=== PATIENT | female | born 2005 | race Caucasian/White ===

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

== ENCOUNTER 2024-10-11 18:45 | Emergency (ER) | payer BC, SELFPAY ==
[2024-10-11 18:47] VITALS: BP 126/83
[2024-10-11 20:24] VITALS: BP 141/80
--- NOTE | 2024-10-11 22:37 | ED.GENMED ---
History of Present Illness
General
Chief Complaint: Head Injury
Source: patient
Exam Limitations: none
Time Seen by Provider: 10/11/24 19:38
Nursing documentation reviewed up to this point in time: agreed with
History of Present Illness
History of Present Illness:
seee MDM
Past History
Past History
ED Past Medical History: Other (Ovarian cysts, sports induced asthma, PCOS, frequent ear infections)
Review of Systems
Review of Systems
Allergies reviewed?: Yes
All Other Systems: Not applicable
Phy Exam
Physical Exam
Physical Exam:
GENERAL: Alert , in no apparent distress
HEAD: NCAT nontender
NECK: no midline tenderness, active ROM intact, no paraspinal muscle tenderness;
EYE: pupils equal and reactive, EOMs intact.
ENT: o/p clr, mmm. no hemotympanum
CARDIAC: Regular rate and rhythm, no edema
LUNGS: Clear breath sounds bilaterally, no acute respiratory distress, no wheezes/rales/rhonchi
ABDOMEN: Soft, without focal tenderness, no r/g, no cvat
NEUROLOGICAL: Alert and oriented, no focal neuro deficits, CN intact, 5/5 strength, sensation intact
SKIN: Warm and dry,
MUSCULOSKELETAL: No edema, well perfused.
PSYCH: Normal and appropriate interaction.
Course
Vital Signs
Initial and Last Documented VS:
Initial Vital Signs
Temp Pulse Resp BP Pulse Ox
36.9 C 85 16 126/83 98
10/11/24 18:47 10/11/24 18:47 10/11/24 18:47 10/11/24 18:47 10/11/24 18:47
Last Documented Vital Signs
Temp Pulse Resp BP Pulse Ox
36.9 C 68 18 141/80 100
10/11/24 18:47 10/11/24 20:24 10/11/24 20:19 10/11/24 20:24 10/11/24 20:24
MDM/Problems Addressed
Differential Diagnosis Includes:
see MDM
MDM/Problems Addressed:
Note:
CHIEF COMPLAINT(S)
Head injury from a fall.
HISTORY OF PRESENT ILLNESS
The patient is a 19-year-old female with a history of concussion last year, presenting today after a fall at work. The incident occurred at approximately 6:30 PM while walking down a grassy hill in the rain. She reports hitting her head on the grass
and experiencing immediate dizziness and seeing stars, but she did not lose consciousness. mildly feels dazed; mild nausea earlier; now eating and feels ok; She describes feeling facial fullness but denies any current headache, blurred vision,
vomiting, or sensitivity to light. She has a past history of a more severe head injury that almost required physical therapy but states this incident does not feel as severe. The patient is not currently on blood thinners and is recording this
incident as work-related for potential workers compensation.
SOCIAL DETERMINANTS AFFECTING HEALTH
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
MEDICATIONS
- control (not specified)
- Dupixent (dupilumab) for eczema
- Fluoxetine for anxiety
- Amiloride for interstitial cystitis
- Supplements for polycystic ovary syndrome (PCOS)
REVIEW OF SYSTEMS
- Neurological: Dizziness, visual disturbance ('seeing stars'). Denies loss of consciousness, current headache, nausea, vomiting, or blurred vision.
PHYSICAL EXAM
Nursing notes reviewed and vital signs reviewed. Specific physical exam findings not detailed.
NEURO intact
no trauma signs
head nontender
well appearing
PLAN
The patient is advised to refrain from work, reading, using a computer, or watching TV for 48 hours. Post-48 hours, she may resume these activities, but requires clearance from a primary care provider before returning to work responsibilities,
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 A CT scan of the brain is offered to rule out structural damage like skull fractures or hemorrhage, given her prior concussion history, but is not deemed necessary based on current evaluation. The
decision is deferred to the patients preference.
DIFFERENTIAL DIAGNOSIS
The Differential Diagnosis includes, in no particular order and is not limited to:
- Concussion/minor head injury
- Intracranial hemorrhage
- Skull fracture
*Pulse Oximetry
SaO2: 100
Oxygen Mode of Delivery: Room air
Patient hypoxic: no
Comment: 100
*Critical Care Note
Total Time (30-74mins, 75-104mins- exclusive of procedures): Not Applicable
ED Attending Note
-
Portions of this chart may have been created with voice recognition software.� Occasional wrong word or��sound alike� substitutions may have occurred due to the inherent limitations of voice recognition software.
Discharge Plan
Departure
Patient Disposition: Home (Routine Discharge)
Date of Disposition: 10/11/24
Time of Disposition: 20:21
Patient with high blood pressure during this ER visit?: No
Condition: Fair
Covid-19: Not Applicable
Discharge Problem:
Minor closed head injury
Instructions: Concussion, Adult (DC), Minor Head Injury (DC)
Prescriptions:
No Action
amoxicillin 875 mg tablet
875 mg PO TID 7 Days Qty: 21 0RF
ciprofloxacin HCl 500 mg tablet
500 mg PO BID Qty: 14 0RF
phenazopyridine 200 mg tablet
200 mg PO TID PRN (Reason: Pain) Qty: 6 0RF
Referrals:
Damaris He CRNP [Family Provider, Internal Medicine] - Follow up in 2-3 days
Stand Alone Forms: Return to Work
Activity Restrictions/Additional Instructions:
YOU LIKELY HAVE A MINOR HEAD INJURY; BUT YOU COULD HAVE MINOR CONCUSSION
REST YOUR BRAIN (LIMIT PHONE, TV, READING, COMPUTER USE) FOR 48 HOURS
AFTE R48 HOURS YOU CAN RETURN TO THESE ACTIVITES
SEE YOUR DOCTOR IN 2-3 DAYS OR WORKMAN'S COMP FOR CLEARANCE FOR WORK
YOUR SYMPTOMS SOUND MILD SO YOU SHOULD LIKELY BE ABLE TO RETURN IF YOU ARE SYMPTOM FREE
RETURN : SEVERE SUDDEN WORST HEADACHE OF LIFE, VOMITING, CONFUSION, WEAKNESS ETC
YOU SHOULD STAY AWAKE FOR ANOTHER 3 HOURS OR SO TO BE SURE NO VOMITING/CONFUSION; THEN YOU CAN GO TO SLEEP TONIGHT
Interventions
Interventions:
*Risk Screen - Suicide Last Done: 10/11/24 18:47
*General Assessment Last Done: 10/11/24 18:47
*Neglect/Abuse Screening Last Done: 10/11/24 18:47
*ED- Fall Risk Assessment Last Done: 10/11/24 18:47
*ED COVID-19 Vaccine History Last Done: 10/11/24 18:47
*Nursing Disposition Last Done: 10/11/24 20:28
ED- Neurological Assessment Last Done: 10/11/24 19:15
ED-Skin Assessment Last Done: 10/11/24 19:15
Discharge Date and Time
Discharge Date/Time: 10/11/24 20:28
Print Language: [id number]
== END 2024-10-11 20:28 | disposition home or self-care (01) ==
LOC: EMR 18:45
PROVIDERS: EMERGENCY PHYSICIAN Emergency Medicine; FAMILY PHYSICIAN Nurse Practitioner Adult Health
DX: S09.90XA Unspecified injury of head, initial encounter (principal); W19.XXXA Unspecified fall, initial encounter; Y93.01 Activity, walking, marching and hiking; Y99.0 Civilian activity done for income or pay; Z79.3 Long term (current) use of hormonal contraceptives
CPT/HCPCS: 99282